=== PATIENT | female | born 1960 | race Caucasian/White ===

== ENCOUNTER 2018-11-08 14:53 | Emergency (ER) | payer OTHER ==
[~2018-11-08] VITALS: Ht 149.9 cm; Wt 75.3 kg
[~2018-11-08 14:53] MED LIST: IBUP-1542 PO; METH750T93 PO
[2018-11-08 15:14] VITALS: BP 139/63; PULSE 80; RESP 18; Ht 149.9 cm; Wt 75.3 kg
== END 2018-11-08 15:58 | disposition home or self-care (01) ==
LOC: E/R 14:53
DX: S49.91XA Unspecified injury of right shoulder and upper arm, initial encounter (principal); W01.0XXA Fall on same level from slipping, tripping and stumbling without subsequent striking against object, initial encounter; Y92.9 Unspecified place or not applicable